=== PATIENT | female | born 1940 | race Caucasian/White ===

== ENCOUNTER 2022-03-18 10:17 | Oncology outpatient (recurring) (ONCR) | payer MEDICARE, BC, SELFPAY ==
[2022-03-18 12:20] LABS: Basophils # 0.1 10^3/uL (0.0-0.1); Basophils % 0.7 %; Eosinophils # 0.1 10^3/uL (0.0-0.8); Eosinophils % 0.8 %; Hematocrit 43.9 % (37.0-47.0); Hemoglobin 14.4 g/dL (11.5-15.3); Lymphocytes % 26.5 %; Mean Corpuscular HGB Conc 32.8 g/dL (30.0-36.0); Mean Corpuscular Hemoglobin 30.5 pg (28.0-34.0); Monocytes # 0.6 10^3/uL (0.2-0.9); Neutrophils # 4.84 10^3/uL (1.8-7.7); Neutrophils % 63.9 %; Nucleated Red Blood Cells % 0 %; Platelet Count 371 10^3/cmm (130-400); Red Blood Count 4.72 10^6/uL (4.1-5.3); Red Cell Distribution Width 13.2 % (12.1-15.1); White Blood Count 7.6 10^3/uL (4.0-10.0)
[2022-03-18 12:38] LABS: Estmated Average Glucose 237; Hemoglobin A1C 9.9 % (4.0-6.0)
[2022-03-18 12:56] LABS: Thyroid Stimulating Hormone 1.77 uIU/mL (0.27-4.20)
[2022-03-18 13:07] LABS: Alanine Aminotransferase 26 U/L (0-33); Alkaline Phosphatase 95 IU/L (35-105); Anion Gap 21.4 (5-19); Aspartate Amino Transferase 36 U/L (0-32); Blood Urea Nitrogen 11 mg/dL (8-23); Calcium 9.7 mg/dL (8.5-10.5); Carbon Dioxide 24 mmol/L (22-29); Chloride 98 mmol/L (98-107); Glucose 282 mg/dL (65-115); Osmolality Calculated 298 mOsm/kg (285-295); Potassium 4.4 mmol/L (3.5-5.1); Sodium 139 mmol/L (136-145); Total Bilirubin 0.3 mg/dL (0.15-1.2)
[2022-03-18 13:54] LABS: Cancer Antigen 19 9 301.5 U/mL (0-35)
== END 2022-04-09 23:59 | disposition home or self-care (01) ==
PROVIDERS: Visit Provider Internal Medicine Medical Oncology
DX: Z08 Encounter for follow-up examination after completed treatment for malignant neoplasm (principal); Z85.07 Personal history of malignant neoplasm of pancreas; Z85.3 Personal history of malignant neoplasm of breast; E11.9 Type 2 diabetes mellitus without complications; R53.83 Other fatigue; L57.0 Actinic keratosis; R97.0 Elevated carcinoembryonic antigen [CEA]
CPT/HCPCS: 36415; 80053; 82378; 83036; 84443; 85025; 86301; 99205

== ENCOUNTER 2022-04-18 12:48 | Oncology outpatient (recurring) (ONCR) | payer MEDICARE, BC, SELFPAY ==
--- NOTE | 2022-04-18 12:54 | CT_ITS ---
WS: [id number] CT CHEST AND ABDOMEN WITH CONTRAST HISTORY: History of pancreatic and breast cancer. TECHNIQUE: Axial imaging is performed through the chest and abdomen with IV and oral contrast.. Sagit mateusz and coronal reformats. All CT scans at [facility] use at least one of these dose optimiza tion techniques: automated exposure control; mA and/or kV adjustment per patient size (includes targe krzysztof exams where dose is matched to clinical indication); or iterative reconstruction. CONTRAST: Omnipaque 350; 95 mL IV. DLP: 999.41 mGy.cm COMPARISON: No studies are available. Chest CT: Mild hyperexpansion of the lungs. Breathing motion artifact. No mass or pulmonary nodule. No pneumoni a. No pericardial or pleural effusion. Heart is normal size. No mediastinal or hilar lymph nodes. Mild atherosclerosis aorta. Normal size pulmonary artery. Degenerative changes throughout the thoracic spine. Abdomen CT: Hepatic steatosis. Liver is very slightly enlarged. Rim-enhancing mass measures 2.8 x 2.6 cm in the p osterior inferior RIGHT lobe. Suspicious for metastatic lesion.No bile duct dilatation. Prior cholecy stectomy. Spleen is not present and probably been surgically removed. There is a soft tissue nodule in the LEFT upper abdomen which may be a splenule or remnant splenic tissue. Only a very small portion of the pa ncreas remains. Piece of the pancreatic head remains. The body and tail of the pancreas have been rem kailyn. There is some very minimal soft tissue thickening at the resection site of the pancreas which a buts the antrum of the stomach. No mass. No adrenal mass. Kidneys are normally enhancing. Atheroscler osis aorta with no aneurysm. Small amount of calcified plaque at the origin of the celiac axis and SM A. No ascites. No adenopathy. Advanced degenerative changes within the visualized lumbar spine. CT/CT chest abdomen w con* IMPRESSION: 1. No prior studies for comparison. 2. Status post near complete pancreatectomy, cholecystectomy and splenectomy. 3. Peripherally enhancing mass RIGHT lobe of the liver suspicious for metastat ic lesion measuring 2.8 x 2.6 cm. Recommend comparison with prior outside imagi ng studies. 4. Very minimal soft tissue thickening near the pancreatic resection site with no enhancement. Recommend correlation with prior outside imaging studies. 5. No metastatic lesions within the lungs. 6. Hepatic steatosis.
[2022-04-18] MEDS: iohexol 350 mg/mL 100 mL Btl IV (14:39)
== END 2022-05-09 23:59 | disposition home or self-care (01) ==
LOC: RAD 12:48 → ONCMED 04-30 13:25
PROVIDERS: Visit Provider Internal Medicine Medical Oncology
DX: C25.9 Malignant neoplasm of pancreas, unspecified (principal); K76.0 Fatty (change of) liver, not elsewhere classified
CPT/HCPCS: 71260; 74160

== ENCOUNTER 2022-05-27 16:24 | Oncology outpatient (recurring) (ONCR) | payer MEDICARE, BC, SELFPAY | END 2022-06-09 23:59 | disposition home or self-care (01) | LOC: ONCMED 16:27 | PROVIDERS: PCP Family Medicine; Visit Provider Internal Medicine Medical Oncology | DX: C25.1 Malignant neoplasm of body of pancreas (principal); C78.7 Secondary malignant neoplasm of liver and intrahepatic bile duct; R97.8 Other abnormal tumor markers; Z90.49 Acquired absence of other specified parts of digestive tract; Z90.81 Acquired absence of spleen; Z92.21 Personal history of antineoplastic chemotherapy; Z92.3 Personal history of irradiation; Z79.899 Other long term (current) drug therapy | CPT/HCPCS: 99214 ==

== ENCOUNTER 2022-06-12 13:05 | Oncology outpatient (recurring) (ONCR) | payer MEDICARE, BC, SELFPAY ==
--- NOTE | 2022-06-12 13:41 | N.ONRAD NP_ITS ---
Radiation Oncology Consultation Patient Name: Ruthie Cabral Date of : 1940 Date of Service: 06/12/2022 Attending Physician: Skyler Wallace M.D. Ruthie Cabral was seen in consultation this morning at the request of Carter Bright M.D. for consideration of stereotactic ablative body radiotherapy in the management of metastatic pancreatic cancer. She was identified to have an elevated CEA in November of 2018. A PET scan demonstrate FDG activity in the pancreatic body that corresponded to a 1.4 cm lesion on non-contrast CT imaging. An MRI of the abdomen obtained in December of 2018 identified a 2.3 cm x 1.9 cm enhancing mass in the pancreatic body. An endoscopic ultrasonography confirmed a 1.9 cm mass with a fine-needle aspiration biopsy positive for adenocarcinoma. A laparoscopic distal pancreatectomy was performed by Amador Rocha M.D. 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 A total of 13 lymph nodes were harvested without malignancy (the medical records were requested and reviewed in [facility]). She was prescribed induction chemotherapy (Gemzar ??? 4 cycles)at [facility] between the dates of March 31, 2019 through May 25, 2019 followed by chemoradiotherapy that was administered with Xeloda (July 11, 2019 to August 19, 2019; 50.4 Gy in 28 fxs). Abraxane and Gemzar was started in September 2021. Surveillance CEA and CA 19???[address] imaging in December and May of 2022 did not reveal recurrent nor metastatic disease. She moved from [place] in March of this year and initiated medical care at [facility] A CA 19???9 was 301.5 U/mL and the CEA was 167 ng/mL. A CT scan ordered on April 18, 2022 described a 2.8 cm x 2.6 cm enhancing mass in the posterior aspect of the right inferior lobe of the liver, soft tissue nodule in the left upper abdomen presenting possible remnant splenic tissue, and soft tissue thickening the resection site of the pancreas abutting the antrum of the stomach. A PET scan (independently reviewed in [facility]) requested on May 17, 2022 reported a 3.8 cm x 2.5 cm mass (SUV 34) in segment of the liver. There was no metabolic evidence for recurrence. The patient was referred for stereotactic ablative body radiotherapy for the hepatic metastasis. I discussed with Ms. Cabral the role of surgery and stereotactic ablative body radiotherapy for the management of metastatic pancreatic cancer. She has been scheduled for a surgical evaluation. Her medical treatment plan was discussed with Carter Bright M.D. Signed by: Dr. Skyler Wallace 06/12/2022 1:40:15 PM
== END 2022-07-09 23:59 | disposition home or self-care (01) ==
LOC: RAD 13:08 → ONCMED 13:24
PROVIDERS: PCP Family Medicine; Visit Provider Radiology Radiation Oncology
DX: C25.1 Malignant neoplasm of body of pancreas (principal); Z90.411 Acquired partial absence of pancreas; C78.7 Secondary malignant neoplasm of liver and intrahepatic bile duct; Z92.21 Personal history of antineoplastic chemotherapy; Z79.899 Other long term (current) drug therapy
CPT/HCPCS: 99205

== ENCOUNTER 2022-10-01 12:20 | Oncology outpatient (recurring) (ONCR) | payer MEDICARE, BC, SELFPAY | END 2022-10-07 23:59 | disposition home or self-care (01) | PROVIDERS: PCP Family Medicine; Visit Provider Internal Medicine Medical Oncology | DX: C25.1 Malignant neoplasm of body of pancreas (principal); Z90.411 Acquired partial absence of pancreas; C78.7 Secondary malignant neoplasm of liver and intrahepatic bile duct; Z92.21 Personal history of antineoplastic chemotherapy; R97.8 Other abnormal tumor markers; Z90.49 Acquired absence of other specified parts of digestive tract; Z90.81 Acquired absence of spleen; Z92.3 Personal history of irradiation | CPT/HCPCS: 99214 ==

== ENCOUNTER 2023-02-24 12:02 | Outpatient (CLI) | payer MEDICARE, BC, SELFPAY ==
[2023-02-24 13:05] LABS: Basophils % 0.1 %; Hematocrit 35.6 % (37.0-47.0); Hemoglobin 12.2 g/dL (11.5-15.3); Lymphocytes # 0.3 10^3/uL (0.8-4.8); Lymphocytes % 3.7 %; Mean Corpuscular HGB Conc 34.3 g/dL (30.0-36.0); Mean Corpuscular Hemoglobin 30.7 pg (28.0-34.0); Mean Corpuscular Volume 89.4 fl (81-99); Mean Platelet Volume 11.5 fL (7.4-10.4); Monocytes # 0.4 10^3/uL (0.2-0.9); Monocytes % 5.5 %; Neutrophils # 7.02 10^3/uL (1.8-7.7); Neutrophils % 90.3 %; Nucleated Red Blood Cells % 0 %; Platelet Count 373 10^3/cmm (130-400); Red Blood Count 3.98 10^6/uL (4.1-5.3); White Blood Count 7.8 10^3/uL (4.0-10.0)
[2023-02-24 13:39] LABS: 25 Hydroxy Vitamin D 22 ng/mL (30-100); Alanine Aminotransferase 164 U/L (0-33); Albumin Level 2.2 g/dL (3.5-5.2); Amylase 36 U/L (28-100); Blood Urea Nitrogen 8 mg/dL (8-23); Carbon Dioxide 21 mmol/L (22-29); Chloride 84 mmol/L (98-107); Chol HDL Ratio 62.25 mg/dL (0.0-4.40); Cholesterol 747 mg/dL (0-200); Globulin 2.6 g/dL (1.3-4.6); Glucose 434 mg/dL (65-115); HDL Cholesterol 12 mg/dL (60-100); LDL Cholesterol Calculated 695 mg/dL (50-129); Lipase 6 U/L (13-60); Magnesium 1.7 mg/dL (1.7-2.3); Osmolality Calculated 271 mOsm/kg (285-295); Sodium 122 mmol/L (136-145); Thyroid Stimulating Hormone 1.22 uIU/mL (0.27-4.20); Total Protein 4.8 g/dL (6.6-8.7); Triglycerides 202 mg/dL (0-150)
[2023-02-24 14:00] LABS: Alkaline Phosphatase 1137 U/L (35-105); Anion Gap 20.8 (5-19); Aspartate Amino Transferase 196 U/L (0-32); LDL HDL Ratio 57.92 RATIO (0.00-3.22); Potassium 3.8 mmol/L (3.5-5.1); Total Bilirubin 17.8 mg/dL (0.15-1.2)
[2023-02-24 14:40] LABS: Carcinoembryonic Antigen 943.9 ng/mL (0.0-4.7)
[2023-02-24 14:44] LABS: Estmated Average Glucose 243; Hemoglobin A1C 10.1 % (4.0-6.0)
[2023-02-24 15:17] LABS: Cancer Antigen 19 9 10182 U/mL (0-35)
== END 2023-02-24 12:03 | disposition home or self-care (01) ==
PROVIDERS: PCP Family Medicine; Visit Provider Family Medicine
DX: C25.1 Malignant neoplasm of body of pancreas (principal); C78.7 Secondary malignant neoplasm of liver and intrahepatic bile duct; E11.9 Type 2 diabetes mellitus without complications; R53.83 Other fatigue; E83.52 Hypercalcemia
CPT/HCPCS: 36415; 80053; 80061; 82150; 82306; 82378; 83036; 83690; 83735; 84443; 85025; 86301

== ENCOUNTER 2023-02-24 16:47 | Emergency (ER) | payer MEDICARE, BC, SELFPAY ==
[2023-02-24] VITALS (8 sets, daily range): BP systolic 103–141; BP diastolic 54–77; PULSE 76–109; RESP 18; TEMP 36.8; O2SAT 90–99; BMI 19.8
--- NOTE | 2023-02-24 16:48 | W.ED.RECABL ---
HPI - Recheck/Abnormal Lab/Rx General: Chief Complaint: Recheck/Abnormal Lab/Rx Stated Complaint: Abnormal labs Time Seen by Provider: 02/24/23 16:47 History of Present Illness: Ms. Cabral is an 82-year-old lady with complex history including pancreatic cancer with stage IV involving liver lesions. She also has a remote history of breast cancer. She underwent liver directed therapy at [facility] and reports that she had been doing well. Approximately 4 weeks ago she began developing nausea, vomiting, lightening of stools and progressively worsening jaundice. She initially thought maybe it was related to contaminated water as there was a boil advisory however it has persisted. She was seen by primary care today and noted to have marked jaundice with abnormalities in labs and referred to the ER for further evaluation. She denies associated abdominal pain. No other specific changes in health, exacerbating, or alleviating factors identified. 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 Family History Denies family history of Diabetes CAD (coronary artery disease) Clotting disorder Dementia Hyperlipidemia Psychiatric illness Chronic kidney disease (CKD) Suicide Anesthesia complication Bleeding disorder Lung disease Cancer Hypertension Stroke Social History Smoking and tobacco status: never smoked Alcohol intake: current Alcohol intake frequency: holidays/special occasions only Female Reproductive History: Spontaneous abortions: No Physical Exam Const: COMMON NORMALS: alert GENERAL APPEARANCE: cooperative, ill appearing and frail appearing HENMT: COMMON NORMALS: normocephalic and atraumatic HEAD & SCALP: normocephalic and atraumatic Eye: COMMON NORMALS: conjunctivae normal CONJUNCTIVA: Yes conjunctivae normal SCLERA: scleral abnormal Laterality of scleral abnormality: positive bilateral scleral icterus Neck/C-Spine: COMMON NORMALS: supple GENERAL: Yes trachea midline Resp: COMMON NORMALS: normal respiratory effort EFFORT & INSPECTION: Yes able to speak in complete sentences Cardio: COMMON NORMALS: regular rate and regular rhythm RATE: regular rate RHYTHM: regular rhythm GI: COMMON NORMALS: Soft to palpation PALPATION: Yes Soft to palpation and No Tenderness to palpation present (GI) PERCUSSION: normal to percussion Extremity: GENERAL: Yes normal exam except as noted and No edema Neuro: COMMON NORMALS: moves all extremities SENSORIUM/ORIENTATION: Yes alert and No Orientation impaired Psych: COMMON NORMALS: mental status grossly normal and Normal thought process present THOUGHT PROCESS: Normal thought process present Skin: GENERAL SKIN EXAM: jaundice Course Vital Signs: Vital signs: Vital Signs Temperature 98.3 F 02/24/23 16:55 Pulse Rate 81 02/24/23 22:14 Respiratory Rate 18 02/24/23 16:55 Blood Pressure 103/65 02/24/23 22:14 Pulse Oximetry 95 02/24/23 22:14 Oxygen Delivery Me thod Room Air 02/24/23 21:30 MDM - Recheck/Abnormal Lab/Rx Medical Decision Making 82-year-old lady presented the emergency department for abnormal labs. She notes weeks of nausea with vomiting and diarrhea. No abdominal pain. Progressive jaundice. Does have significant hepatobiliary pancreatic oncologic history. labs with no leukocytosis, normal hemoglobin and platelet count. Metabolic panel with hyponatremia and hypochloridemia. Minimal decrease in bicarb and minimal increase in anion gap. Blood glucose is elevated and 1+ ketones though ABG shows pH of 7.56. Bilirubin 20.4 with direct fraction pending. Mild transaminitis with AST 199 and ALT 179. Alk phos 1281. Albumin 2.6. Lipase is normal. No UTI. Hepatitis panel pending. Salicylate, acetaminophen, and alcohol level were negative. CT demonstrates enlargement of residual head of pancreas worrisome for mass lesion with possible pancreatitis and marked intrahepatic and extrahepatic biliary ductal dilation. Additionally there is hypodense mass right lobe of the liver larger than prior. Discussed results including concerning results for recurrence/progression of cancer with the patient. Discussed with [facility] center. Surgeon reviewed case and recommended ER to ER transfer. Patient accepted by Dr. Lemus as transfer. ED course patient treated with IV fluids and insulin. Medical Records I reviewed the patient's medical records. Lab Data I reviewed the patient's lab results. Radiology Impressions Abdomen/Pelvis CT 02/24/23 17:01 IMPRESSION: 1. Enlargement of the residual head of the pancreas worrisome for pancreatic mass. 2. Possible pancreatitis 3. Marked intrahepatic and extrahepatic biliary tract dilatation. 4. Hypodense mass right lobe of the liver larger than on 04/18/2022 Laboratory Results PT 21.50 SECONDS (12.1-14.9) H 02/24/23 17:36 INR 1.80 (0.8-1.2) H 02/24/23 17:36 APTT 32.7 SECONDS (23.9-36.7) 02/24/23 17:36 Specimen Type Arterial 02/24/23 17:35 Sample Site Radial, right 02/24/23 17:35 ABG pH 7.56 (7.35-7.45) H 02/24/23 17:35 ABG pCO2 29.2 mmHg (35-45) L 02/24/23 17:35 ABG pO2 97.8 mmHg (80.0-100.0) 02/24/23 17:35 ABG HCO3 25.8 mmol/L (22-26) 02/24/23 17:35 ABG Base Excess 4.1 mmol/L (-2.0-2.0) H 02/24/23 17:35 Kirit Test Pos 02/24/23 17:35 Hematocrit 38.1 % (37-47) 02/24/23 17:35 O2 Delivery Device Room air 02/24/23 17:35 Optical Goods Drill Operator ID [id number] 02/24/23 17:35 POC Glucose 576 mg/dL (70-110) H* 02/24/23 19:46 Lactic Acid 3.7 mmol/L (0.5-2.2) H 02/24/23 17:36 Total Bilirubin 20.4 mg/dL (0.15-1.2) H* 02/24/23 17:36 Direct Bilirubin 16.80 mg/dL (0.00-0.30) H 02/24/23 17:36 AST 199 U/L (0-32) H 02/24/23 17:36 ALT 179 U/L (0-33) H 02/24/23 17:36 Alkaline Phosphatase 1281 U/L (35-105) H* 02/24/23 17:36 Total Protein 6.0 g/dL (6.6-8.7) L D 02/24/23 17:36 Albumin 2.6 g/dL (3.5-5.2) L 02/24/23 17:36 Globulin 3.4 g/dL (1.3-4.6) 02/24/23 17:36 Urine Color Yellow (Yellow) 02/24/23 19:03 Urine Appearance Clear (CLEAR) 02/24/23 19:03 Urine pH 7 (5-7) 02/24/23 19:03 Ur Specific [place] 1.000 (1.005-1.030) L 02/24/23 19:03 Urine Protein Neg (Negative) 02/24/23 19:03 Urine Glucose (UA) 4+ (Normal) H 02/24/23 19:03 Urine Ketones 1+ (Negative) H 02/24/23 19:03 Urine Blood Neg (Negative) 02/24/23 19:03 Urine Nitrate Negative (Negative) 02/24/23 19:03 Urine Bilirubin 2+ (Negative) H 02/24/23 19:03 Urine Urobilinogen 1 mg/dL (Negative) H 02/24/23 19:03 Ur Leukocyte Esterase Negative (Negative) 02/24/23 19:03 Salicylates 0.4 mg/dL (3-10) L 02/24/23 17:36 Acetaminophen < 5.0 ug/mL (10-30) L 02/24/23 17:36 Ethyl Alcohol < 10 mg/dL (0-10) 02/24/23 17:36 Serum Ketones Positive (Negative) H 02/24/23 17:36 Hepatitis A IgM Ab Non-reactive (Nonreactive) 02/24/23 17:36 Hep Bs Antigen Non-reactive (Nonreactive) 02/24/23 17:36 Hep B Core IgM Ab Non-reactive (Nonreactive) 02/24/23 17:36 Hepatitis C Antibody Non-reactive (Nonreactive) 02/24/23 17:36 Critical Care Time Critical Care Time: Critical Care Time: Yes Total Critical Care Time: 35 Attestation: Due to a high probability of clinically significant, possibly life threatening deterioration, the patient required my highest level of attention and preparedness to intervene emergently and I personally spent this critical care time directly and personally managing the patient. This critical care time included obtaining a history; examining the patient; pulse oximetry; ordering and review of laboratory and imaging studies; arranging urgent treatment with development of a management plan; evaluation of patient's response to treatment; frequent reassessment; and, discussions with other providers as applicable. It was exclusive of separately billable procedures. Primary system involved is GI Discharge Plan Discharge Patient Disposition: Transfer to ED Clinical Impression: Acute liver failure without hepatic coma, Liver mass, Mass of pancreas, History of metastatic neoplastic disease Condition: Stable Prescriptions: No Action multivitamin Tablet 1 tab PO DAILY aspirin 81 mg tablet,chewable 81 mg PO DAILY Referrals: Derrick Vidales DO [Primary Care Provider] - Coding Level of Care Code ED Equipment Tech for Rakel Wilks
--- NOTE | 2023-02-24 17:01 | CTR_ITS ---
PROCEDURE INFORMATION: Exam: CT Abdomen And Pelvis With Contrast Exam date and time: 02/24/2023 5:55 PM Age: 82 years old Clinical indication: Abdominal pain; Acute; Prior surgery; Surgery date: 6+ months; Surgery type: Pancreas spleen gb RT hip; Additional info: N/v/d, acute liver failure, prior surgery TECHNIQUE: Imaging protocol: Computed tomography of the abdomen and pelvis with contrast. Radiation optimization: All CT scans at this facility use at least one of these dose optimization techniques: automated exposure control; mA and/or kV adjustment per patient size (includes targeted exams where dose is matched to clinical indication); or iterative reconstruction. Contrast material: OMNI 350; Contrast volume: 100 ml; Contrast route: INTRAVENOUS (IV); REPORTING DATA: Count of CT and Cardiac NM exams in prior 12 months: This patient has received 2 known CTs and 0 known cardiac nuclear medicine studies in the 12 months prior to the current study. COMPARISON: CT chest abdomen w con* 04/18/2022 2:23 PM RADIATION DOSE METRICS: Total DLP (mGy-cm): 342.73 FINDINGS: Pleural spaces: There is a small right pleural effusion. Liver: There is hypodense mass posterior right lobe of the liver measuring 27 x 46 mm, previously this was a peripherally enhancing mass measuring 25 x 32 mm. This is worrisome for metastatic disease although this could represent treated metastatic mass. Gallbladder and bile ducts: There is extensive intrahepatic biliary tract dilatation. Pancreas: There has been enlargement of the residual distal portion of the pancreas which enhances uniformly. This enlargement is suspicious for pancreatic mass. There is dilatation of the residual pancreatic duct up to 9 mm in diameter. There is marked dilatation of the common bile duct up to 15 mm. There is small amount of fluid adjacent to the head of the pancreas and one could not exclude pancreatitis. Spleen: There has been splenectomy and distal pancreatectomy as noted on the previous examination. Adrenal glands: The adrenal glands are normal. Kidneys and ureters: The kidneys are normal. There is no evidence of hydronephrosis. There is no evidence of renal or ureteral calcifications. Stomach and bowel: There is moderate fluid dilatation of the stomach. There is no evidence of colitis/diverticulitis. There is no evidence of intestinal obstruction. Appendix: A normal appendix is identified. Intraperitoneal space: There is a small amount of ascites within the pelvis. Vasculature: The aorta demonstrates mild atherosclerotic calcification. There is no evidence of an abdominal aortic aneurysm. Lymph nodes: There is no evidence of lymphadenopathy. Urinary bladder: Unremarkable as visualized. Reproductive: Unremarkable as visualized. 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 There is right total hip replacement. The lumbar spine demonstrates moderate degenerative changes at multiple levels. There is multilevel lumbar stenosis. Soft tissues: Unremarkable. CT/CT abdomen pelvis w con* [id number] IMPRESSION: 1. Enlargement of the residual head of the pancreas worrisome for pancreatic mass. 2. Possible pancreatitis 3. Marked intrahepatic and extrahepatic biliary tract dilatation. 4. Hypodense mass right lobe of the liver larger than on 04/18/2022
[2023-02-24 17:50] LABS: Glucose Point of Care > 600 mg/dL (70-110)
[2023-02-24 17:50] LABS: Glucose Point of Care > 600 mg/dL (70-110)
[2023-02-24 17:51] LABS: ABG PCO2 29.2 mmHg (35-45); ABG PH Result 7.56 (7.35-7.45); Arterial Blood Gas Hematocrit 38.1 % (37-47); Base Excess ABG 4.1 mmol/L (-2.0-2.0); Blood Gas Allen Test Pos; Blood Gas Operator Identificat GD; Blood Gas Sample Site Radial, right; Blood Gas Sample Type Arterial; HCO3 ABG 25.8 mmol/L (22-26); Oxygen Device ROOM AIR; PO2 ABG 97.8 mmHg (80.0-100.0)
[2023-02-24] MEDS: iohexol 350 mg/mL 500 mL Btl (per mL) IV (17:57)
[2023-02-24 18:07] LABS: Partial Thromboplastin Time 32.7 SECONDS (23.9-36.7)
[2023-02-24 18:09] LABS: Lactic Sepsis W/Reflex 3.7 mmol/L (0.5-2.2)
[2023-02-24] MEDS: sodium chloride 0.9% 500 ML 999 ML IV (18:17)
[2023-02-24 18:26] LABS: Ketone (Acetest) Serum Positive (Negative)
[2023-02-24 18:28] LABS: Alanine Aminotransferase 179 U/L (0-33); Albumin Level 2.6 g/dL (3.5-5.2); Globulin 3.4 g/dL (1.3-4.6); Salicylate 0.4 mg/dL (3-10)
[2023-02-24 18:47] LABS: Acetaminophen < 5.0 ug/mL (10-30); Alcohol Level < 10 mg/dL (0-10)
[2023-02-24 18:48] LABS: Aspartate Amino Transferase 199 U/L (0-32)
[2023-02-24 18:50] LABS: Alkaline Phosphatase 1281 U/L (35-105); Total Bilirubin 20.4 mg/dL (0.15-1.2)
[2023-02-24 19:18] LABS: Add Urine Microscopic? NO; Charge for UA Resulting for Rev
[2023-02-24 19:25] LABS: Bilirubin Urine 2+ (Negative); Blood Urine Neg (Negative); Glucose Urine UA 4+ (Normal); Ketones Urine 1+ (Negative); Leukocyte Esterase Urine Negative (Negative); Nitrate Urine Negative (Negative); Protein Urine Neg (Negative); Urine Appearance Clear (CLEAR); Urine Color Yellow (Yellow); Urobilinogen Urine 1 mg/dL (Negative); pH Urine 7 (5-7)
[2023-02-24 19:35] LABS: Reflex Lactate Order REFLEX LACTIC ORDERD
[2023-02-24 19:51] LABS: Glucose Point of Care 576 mg/dL (70-110)
--- NOTE | 2023-02-24 20:41 | PC.NURSE ---
Dr Garcia verified pt potassium level was safe for insulin administration. said it was safe to administer.
[2023-02-24] MEDS: insulin regular-human 100 units/1 mL 6 UNIT IVP (20:42)
[2023-02-24 21:06] LABS: Hepatitis A Antibody IgM Non-Reactive (Nonreactive); Hepatitis B Core IgM Non-Reactive (Nonreactive); Hepatitis B Surface Antigen Non-Reactive (Nonreactive); Hepatitis C Virus Antibody Non-Reactive (Nonreactive)
== END 2023-02-24 22:14 ==
PROVIDERS: Emergency Provider Emergency Medicine; PCP Family Medicine
DX: K72.90 Hepatic failure, unspecified without coma (principal); R16.0 Hepatomegaly, not elsewhere classified; K86.9 Disease of pancreas, unspecified; Z79.82 Long term (current) use of aspirin; Z85.3 Personal history of malignant neoplasm of breast; Z85.07 Personal history of malignant neoplasm of pancreas; E11.9 Type 2 diabetes mellitus without complications; E87.1 Hypo-osmolality and hyponatremia; E87.8 Other disorders of electrolyte and fluid balance, not elsewhere classified; C25.1 Malignant neoplasm of body of pancreas
CPT/HCPCS: 36415; 36416; 36600; 74177; 80053; 80061; 80074; 80076; 80307; 81003; 82009; 82150; 82306; 82378; 82803; 82962; 83036; 83605; 83690; 83735; 84443; 85025; 85610; 85730; 86301; 87040; 87077; 87150; 87186; 87205; 96361; 96374; 99285; J1815; J7040; Q9967